=== PATIENT | male | born 1950 | race Caucasian/White ===

== ENCOUNTER 2017-01-22 23:27 | Emergency (ER) | payer MEDICARE, OTHER ==
[2017-01-22 23:50] LABS: RED BLOOD COUNT 3.88 M/UL (4.20-5.50)
== END 2017-01-23 06:31 | disposition expired ==
LOC: ER1 23:27
PROVIDERS: Family Medicine
DX: J96.90 Respiratory failure, unspecified, unspecified whether with hypoxia or hypercapnia (principal); I11.0 Hypertensive heart disease with heart failure; I50.9 Heart failure, unspecified; E11.9 Type 2 diabetes mellitus without complications
CPT/HCPCS: 31500; 36415; 36600; 51702; 71010; 80053; 82550; 82553; 82803; 82962; 83605; 83874; 83880; 84484; 85025; 85379; 87040; 92950; 93005; 94002; 94664; 96374; 96375; 99285; J0171; J0461; J1940; J2060; J2543; J7050; Q9963